=== PATIENT | male | born 2005 ===

== ENCOUNTER 2025-05-12 01:59 | Outpatient (CLI) | payer MEDICAID, SELFPAY | END 2025-05-12 02:00 | disposition home or self-care (01) | LOC: AMB 05-15 09:34 | PROVIDERS: Visit Provider Family Medicine | DX: F29 Unspecified psychosis not due to a substance or known physiological condition (principal) | CPT/HCPCS: A0425; A0427 ==

== ENCOUNTER 2025-05-12 02:56 | Emergency (ER) | payer MEDICAID, SELFPAY ==
[2025-05-12] VITALS (63 sets, daily range): BP systolic 100–145; BP diastolic 45–108; PULSE 66–146; RESP 12–29; TEMP 36.3–36.4; O2SAT 88–100
--- NOTE | 2025-05-12 03:25 | CRLHL7_ITS ---
For Patients: As a result of the Century Cures Act, medical imaging exams and procedure reports are released immediately into your electronic medical record. You may view this report before your referring provider. If you have questions, please contact your health care provider. INDICATION: Trauma. TECHNIQUE: CT head without contrast. COMPARISON: None. FINDINGS: No acute intracranial hemorrhage. No CT evidence of acute territorial infarct. No hydrocephalus or midline shift. Normal cerebral parenchymal volume. Opacification of the right maxillary sinus. Mucosal thickening of the ethmoid air cells. Mastoid air cells are well ventilated. No acute calvarial fracture. IMPRESSION: No acute intracranial abnormality. Please note that all CT scans at this facility use dose modulation, iterative reconstruction, and/or weight-based dosing when appropriate to reduce radiation dose to as low as reasonably achievable. Dictated by Tony Reyes MD @ 05/12/2025 3:59:34 AM (Electronically Signed)
--- NOTE | 2025-05-12 03:25 | CRLHL7_ITS ---
For Patients: As a result of the Century Cures Act, medical imaging exams and procedure reports are released immediately into your electronic medical record. You may view this report before your referring provider. If you have questions, please contact your health care provider. INDICATION: Trauma. TECHNIQUE: CT cervical spine without contrast. COMPARISON: None. FINDINGS: No acute fracture or suspicious osseous lesion. The cervical vertebral bodies maintain their normal heights with preserved lordosis. No significant spondylolisthesis. No significant disc space height loss. Paraspinal soft tissues grossly within normal limits. Visualized portions of the lungs are clear. IMPRESSION: No acute abnormality of the cervical spine. Please note that all CT scans at this facility use dose modulation, iterative reconstruction, and/or weight-based dosing when appropriate to reduce radiation dose to as low as reasonably achievable. Dictated by Tony Reyes MD @ 05/12/2025 3:57:49 AM (Electronically Signed)
--- NOTE | 2025-05-12 03:31 | ED.AMS ---
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 2.110 (0.270-4.20) uIU/mL Salicylates < 1.0 L (1.0-10) mg/dL Urine Opiates Screen Negative (Negative) Ur Oxycodone Screen Negative (Negative) Urine Methadone Screen Negative (Negative) Acetaminophen < 10.0 (10.0-30.0) ug/mL Ur Barbiturates Screen Negative (Negative) U Tricyclic Antidepress Negative (Negative) Ur Phencyclidine Scrn Negative (Negative) Ur Amphetamines Screen POSITIVE A (Negative) U Methamphetamines Scrn POSITIVE A (Negative) U Benzodiazepines Scrn POSITIVE A (Negative) Urine Cocaine Screen Negative (Negative) U Marijuana (THC) Screen POSITIVE A (Negative) Ur Drug Screen Comment See Note Ethyl Alcohol < 0.01 (0.01-0.03) % Lab Acknowledgement Test Added <Josh Chavez MD - Last Filed: 05/12/25 08:30> Lab Results 05/12/25 05/12/25 05/12/25 Range/Units 03:20 04:02 Unknown WBC 15.96 H (4.50-11.00) K/uL RBC 5.09 (4.30-5.90) m/uL Hgb 15.1 (13.5-17.5) gm/dL Hct 43.3 (37.0-53.0) % MCV 85 (80-100) fL MCH 30 (26-34) pg MCHC 35 (32-36) gm/dL RDW Coeff of Barney 12.3 (11.5-15.5) % Plt Count 270 (140-440) K/uL Neut % (Auto) 82.6 H (42.0-72.0) % Lymph % (Auto) 10.5 L (20-44) % Routt % (Auto) 5.7 (0.0-11.0) % Eos % (Auto) 0.3 (0.0-7.0) % Baso % (Auto) 0.3 (0.0-3.0) % Neut # (Auto) 13.20 H (1.7-7.0) K/uL Lymph # (Auto) 1.70 (0.90-2.90) K/uL Routt # (Auto) 0.90 (0.00-0.90) K/UL Eos # (Auto) 0.00 (0.00-0.50) K/uL Baso # (Auto) 0.00 (0.00-0.30) K/uL Abs Immat Gran (auto) 0.10 (0.00-0.30) K/uL Imm/Tot Granulo (auto) 0.6 % Sodium 141 (135-149) mmol/L Potassium 3.4 L (3.6-5.1) mmol/L Chloride 101 (96-114) mmol/L Carbon Dioxide 26 (20-32) mmol/L Anion Gap 14 (7-15) mEq/L BUN 17 (5-24) mg/dL Creatinine 1.4 (0.5-1.5) mg/dL Estimated GFR 73 ml/min Glucose 144 H (60-115) mg/dL Calcium 9.8 (8.4-10.6) mg/dL Total Bilirubin 0.6 (0.1-1.5) mg/dL Direct Bilirubin 0.0 (0.0-0.5) mg/dL AST 32 (12-35) U/L ALT 28 (4-50) U/L Alkaline Phosphatase 87 (40-150) U/L Total Protein 8.0 (6.0-8.3) g/dL Albumin 5.0 (3.3-5.0) g/dL TSH 2.110 (0.270-4.20) uIU/mL Salicylates < 1.0 L (1.0-10) mg/dL Urine Opiates Screen Negative (Negative) Ur Oxycodone Screen Negative (Negative) Urine Methadone Screen Negative (Negative) Acetaminophen < 10.0 (10.0-30.0) ug/mL Ur Barbiturates Screen Negative (Negative) U Tricyclic Antidepress Negative (Negative) Ur Phencyclidine Scrn Negative (Negative) Ur Amphetamines Screen POSITIVE A (Negative) U Methamphetamines Scrn POSITIVE A (Negative) U Benzodiazepines Scrn POSITIVE A (Negative) Urine Cocaine Screen Negative (Negative) U Marijuana (THC) Screen POSITIVE A (Negative) Ur Drug Screen Comment See Note Ethyl Alcohol < 0.01 (0.01-0.03) % Lab Acknowledgement Test Added <Camila Chacon MD - Last Filed: 05/12/25 15:23> Imaging Data CT scan - head: Attestation: I have reviewed the pertinent imaging results. <Josh Chavez MD - Last Filed: 05/12/25 08:30> My impression: I reviewed the CT scan of his head and neck showed no acute abnormality await radiologic over-read. There was a right maxillary fluid level <Josh Chavez MD - Last Filed: 05/12/25 08:30> Foot x-ray: Attestation: I have reviewed the pertinent imaging results. <Camila Chacon MD - Last Filed: 05/12/25 15:23> Radiologist's impression: TECHNIQUE: Three radiographic view(s) of the left foot. FINDINGS: No evident acute displaced fracture. No substantial degenerative change. IMPRESSION: No acute osseous findings. <Camila Chacon MD - Last Filed: 05/12/25 15:23> Finger x-ray: Attestation: I have reviewed the pertinent imaging results. <Camila Chacon MD - Last Filed: 05/12/25 15:23> ECG Data Attestation: I personally reviewed and interpreted this ECG as follows: <Josh Chavez MD - Last Filed: 05/12/25 08:30> ECG interpretation date: 05/12/25 <Josh Chavez MD - Last Filed: 05/12/25 08:30> Prior ECG tracings: not available for review <Josh Chavez MD - Last Filed: 05/12/25 08:30> Interpretation: EKG shows sinus tachycardia with a rate of 122, no acute ST wave changes, he does have Q-waves noted inferiorly, and laterally. Assessment: Abnormal EKG with sinus tachycardia, Q-waves inferiorly and laterally. <Josh Chavez MD - Last Filed: 05/12/25 08:30> Discharge Plan Discharge Clinical Impression: Altered mental status, Head injury, Chin laceration, Abrasion of knee, bilateral, Pityriasis rosea, Methamphetamine-induced psychotic disorder, Foot injury, Finger injury <Josh Chavez MD - Last Filed: 05/12/25 08:30> Patient Disposition: Home w/ Parent or Adult <Josh Chavez MD - Last Filed: 05/12/25 08:30> Condition: Stable <Josh Chavez MD - Last Filed: 05/12/25 08:30> Additional Instructions: Patient medically stable. Continue Prozac and Seroquel. X-rays of foot and finger did not show any evidence of fractures. <Josh Chavez MD - Last Filed: 05/12/25 08:30> Prescriptions: No Action quetiapine 100 mg tablet 100 mg PO QPM fluoxetine 40 mg capsule 60 mg PO <Josh Chavez MD - Last Filed: 05/12/25 08:30> Stand Alone Forms: My[facility] Info Instructions <Josh Chavez MD - Last Filed: 05/12/25 08:30>
[2025-05-12 03:39] LABS: Hematocrit 43.3 % (37.0-53.0); Hemoglobin* 15.1 gm/dL (13.5-17.5); Immature Granulocytes Abs Auto 0.10 K/uL (0.00-0.30); Immature Granulocytes Pct Auto 0.6 %; Mean Corpuscular HGB Conc 35 gm/dL (32-36); Mean Corpuscular Hemoglobin 30 pg (26-34); Mean Corpuscular Volume 85 fL (80-100); RDW Coefficient of Variation % 12.3 % (11.5-15.5); Red Blood Count 5.09 m/uL (4.30-5.90); White Blood Count* 15.96 K/uL (4.50-11.00)
[2025-05-12 03:41] LABS: Lymphocytes Absolute Auto 1.70 K/uL (0.90-2.90); Slide Review Reflex No
[2025-05-12 03:52] LABS: Albumin* 5.0 g/dL (3.3-5.0); Chloride* 101 mmol/L (96-114); Potassium* 3.4 mmol/L (3.6-5.1); Sodium* 141 mmol/L (135-149)
[2025-05-12 03:54] LABS: Blood Urea Nitrogen* 17 mg/dL (5-24); Creatinine* 1.4 mg/dL (0.5-1.5); Estimated Glomerular Filt Rate 73 ml/min
[2025-05-12 03:55] LABS: Alanine Aminotransferase* 28 U/L (4-50); Alkaline Phosphatase* 87 U/L (40-150); Anion Gap 14 mEq/L (7-15); Aspartate Amino Transferase* 32 U/L (12-35); Bilirubin Direct* 0.0 mg/dL (0.0-0.5); Bilirubin Total* 0.6 mg/dL (0.1-1.5); Calcium* 9.8 mg/dL (8.4-10.6); Carbon Dioxide* 26 mmol/L (20-32); Glucose* 144 mg/dL (60-115); Total Protein* 8.0 g/dL (6.0-8.3)
[2025-05-12 03:56] LABS: Acetaminophen* < 10.0 ug/mL (10.0-30.0)
[2025-05-12 05:04] LABS: Ethanol* < 0.01 % (0.01-0.03)
[2025-05-12 05:05] LABS: Salicylate* < 1.0 mg/dL (1.0-10)
[2025-05-12] MEDS: OLANZapine 5 MG/ML inj 10 MG IM (06:50)
--- NOTE | 2025-05-12 13:05 | CRLHL7_ITS ---
For Patients: As a result of the Century Cures Act, medical imaging exams and procedure reports are released immediately into your electronic medical record. You may view this report before your referring provider. If you have questions, please contact your health care provider. INDICATION: Medial foot pain COMPARISON: None. TECHNIQUE: Three radiographic view(s) of the left foot. FINDINGS: No evident acute displaced fracture. No substantial degenerative change. IMPRESSION: No acute osseous findings. Dictated by Sourav Caceres MD @ 05/12/2025 1:42:14 PM (Electronically Signed)
--- NOTE | 2025-05-12 14:15 | CRLHL7_ITS ---
For Patients: As a result of the Cures Act, medical imaging exams and procedure reports are released immediately into your electronic medical record. You may view this report before your referring provider. If you have questions, please contact your health care provider. INDICATION: Trauma, 3RD digit pain TECHNIQUE: Finger radiograph 3 views left 3rd COMPARISON: None FINDINGS: Bone: No acute fractures or aggressive bone lesions are identified. Joint: The metacarpophalangeal and interphalangeal joints are normal in appearance. Soft tissue: Unremarkable. No radiopaque foreign bodies are seen. IMPRESSION: 1. No acute osseous injuries or abnormalities are noted. Dictated by: Newton Randall MD @ 05/12/2025 15:42:25 (Electronically Signed)
[2025-05-12 14:24] LABS: Cannabinoid Screen Urine POSITIVE (Negative); Methamphetamines Screen Urine POSITIVE (Negative); Tricyclic Antidepressant Urine Negative (Negative)
== END 2025-05-12 15:40 | disposition home or self-care (01) ==
PROVIDERS: Family Medicine; Emergency Provider Family Medicine
DX: F15.151 Other stimulant abuse with stimulant-induced psychotic disorder with hallucinations (principal); S01.81XA Laceration without foreign body of other part of head, initial encounter; L42 Pityriasis rosea
CPT/HCPCS: 36415; 70450; 72125; 73140; 73630; 80048; 80076; 80143; 80179; 80306; 82077; 84443; 85025; 93005; 94761; 96374; 99285; J2060; J7030